=== PATIENT | male | born 1995 ===

== ENCOUNTER 2018-09-20 15:39 | Emergency (ER) | payer MEDICAID, OTHER ==
[2018-09-20 15:57] VITALS: O2SAT 100
--- NOTE | 2018-09-20 16:59 | ED PDOC ---
HPI: General Adult Time Seen by Provider: 09/20/18 16:28 Chief Complaint (Nursing): Upper Extremity Problem/Injury Chief Complaint (Provider): Neck Lumps History Per: Patient History/Exam Limitations: no limitations Onset/Duration Of Symptoms: Days (x1 year) Current Symptoms Are (Timing): Still Present Additional Complaint(s): Patient is a 22 y/o male with no significant PMHx who presents to the ED for evaluation of a lump on the right side his neck for over a year. Patient states he recently noticed one near his armpit. Patient states he saw a dentist for the lump on his neck originally, was given antibiotics without improvement and told he needed to follow up, but he never did. Patient reports occasional discomfort/aware of the lump while swallowing. Patient denies difficulty breathing, drooling, swallowing, chest pain, unintentional weight loss, fever, and chills. PCP: None Provided Past Medical History Reviewed: Historical Data, Nursing Documentation, Vital Signs Vital Signs: Last Vital Signs Temp 98.9 F 09/20/18 15:56 Pulse 75 09/20/18 15:56 Resp 16 09/20/18 15:56 BP 121/70 09/20/18 15:56 Pulse Ox 100 09/20/18 15:56 - Medical History PMH: No Chronic Diseases - Surgical History Surgical History: Tonsillectomy - Family History Family History: States: No Known Family Hx - Allergies Allergies/Adverse Reactions: Allergies Allergy/AdvReac Type Severity Reaction Status Date / Time No Known Allergies Allergy Verified 09/20/18 16:03 Review of Systems ROS Statement: Except As Marked, All Systems Reviewed And Found Negative Constitutional: Negative for: Fever, Chills ENT: Negative for: Other (difficulty swallowing) Respiratory: Negative for: Other (difficulty breathing) Musculoskeletal: Positive for: Neck Pain (discomfort; right side neck and axilla area feels a lump) Physical Exam - Reviewed Nursing Documentation Reviewed: Yes Vital Signs Reviewed: Yes - Physical Exam Comments: GENERAL APPEARANCE: Patient is awake, alert, oriented x 3, in no acute distress. SKIN: Warm, dry; (-) cyanosis, (-) rash. (-) Decubitus Ulcer Right axilla: (-) palpable lympadenopathy, cyst, or abscess EYES: (-) conjunctival pallor, (-) scleral icterus, (-) conjunctival hemorrhage. ENMT: Mucous membranes moist, (-) trismus. TMs: (-) erythema. Airway patent: (-) stridor. Pharynx: (-) erythema, (-) exudate. NECK: Full ROM, (-) tenderness, (-) stiffness, (-) meningismus, (-) thyromegaly. Submandibular lymph nodes bilateral, R>L. ABDOMEN AND GI: Soft; (-) tenderness, (-) guarding; (-) organomegaly; (-) mass; (-) CVA tenderness. EXTREMITIES: (-) deformity; (-) cellulitis, (-) lymphangitis; (-) subungual hemorrhage; (-) edema. NEURO AND PSYCH: Mental status as above; (-) focal findings. - Laboratory Results Result Diagrams: 09/20/18 17:35 09/20/18 17:35 - ECG O2 Sat by Pulse Oximetry: 100 (RA) Pulse Ox Interpretation: Normal Medical Decision Making Medical Decision Making: Time: 1640 Impression: Nonspecific lumps Plan: Neck Soft Tissue [Rad] Rapid Strep Group a Antigen BMP CBC Time: 1740 FINDINGS: Airway appears grossly normal. No radiopaque foreign body seen. No osseous destruction seen. No malalignment. IMPRESSION: No airway compromise appreciated. No radiopaque foreign body noted. Time: 1814 Mildly low WBC. Nonspecific. Advised to followup with PCP. Discussed results, diagnosis, treatment, return precautions and f/u with pt who is understanding, in agreement and stable for dc Scribe Attestation: Documented by Arnold Espinal, acting as a scribe for Wil Perez PA-C Provider Scribe Attestation: All medical record entries made by the Scribe were at my direction and personally dictated by me. I have reviewed the chart and agree that the record accurately reflects my personal performance of the history, physical exam, medical decision making, and the department course for this patient. I have also personally directed, reviewed, and agree with the discharge instructions and disposition. Disposition - Clinical Impression Clinical Impression: Lymphadenopathy, Abnormal white blood cell - Patient ED Disposition Is Patient to be Admitted: No Counseled Patient/Family Regarding: Studies Performed, Diagnosis, Need For Followup - Disposition Referrals: [facility] [Outside] Disposition: Routine/Home Disposition Time: 18:14 Condition: STABLE Additional Instructions: Thank you for letting us take care of you today. You were treated for an enlarged lymph node, with mildly low WBC. The emergency medical care you rece ived today was directed at your acute symptoms. If you were prescribed any medication, please fill it and take as directed. It may take several days for your symptoms to resolve. Return to the Emergency Department if your symptoms worsen, do not improve, or if you have any other problems. Please contact your doctor in 2 days for re-evaluation and follow up / or call one of the physicians/clinics you have been referred to that are listed on the Patient Visit Information form that is included in your discharge packet. Bring any paperwork you were given at discharge with you along with any medications you are taking to your follow up visit. Our treatment cannot replace ongoing medical care by a primary care provider (PCP) outside of the emergency department. Instructions: Lymphadenitis Forms: [employer] (Vincentian) Print Language: DANISH - POA Present On Arrival: None
[2018-09-20 17:39] LABS: BASO % 1.3 % (0.0-2.0); EOS # 0.1 K/uL (0.0-0.7); EOS % 2.6 % (0.0-4.0); LYMPH # 1.4 K/uL (1.0-4.3); LYMPH % 36.9 % (20.0-40.0); MEAN CELL VOLUME 91.6 fl (80.0-94.0); MEAN CORPUSCULAR HEMOGLOBIN 31.2 pg (27.0-31.0); MEAN CORPUSCULAR HGB CONC 34.1 g/dL (33.0-37.0); MONO # 0.3 K/uL (0.0-0.8); MONO % 7.4 % (0.0-10.0); NEUT # 1.9 K/uL (1.8-7.0); NEUT % 51.8 % (50.0-75.0); NRBC % 3.5 % (0.0-0.0); RBC 5.11 Mil/uL (4.40-5.90); RED CELL DISTRIBUTION WIDTH 12.7 % (11.5-14.5); WHITE BLOOD COUNT 3.7 K/uL (4.8-10.8)
--- NOTE | 2018-09-20 17:45 | RAD ---
Date of service: 09/20/2018 HISTORY: COMPARISON: No comparison available. TECHNIQUE: 2 views obtained. FINDINGS: Airway appears grossly normal. No radiopaque foreign body seen. No osseous destruction seen. No malalignment. IMPRESSION: No airway compromise appreciated. No radiopaque foreign body noted.
[2018-09-20 17:48] LABS: BLOOD UREA NITROGEN 13 mg/dl (9-20); CALCIUM 9.7 mg/dL (8.4-10.2); GFR NON-AFRICAN AMERICAN > 60
[2018-09-20 18:22] VITALS: BP 122/70; PULSE 76; RESP 18; TEMP 98
== END 2018-09-20 18:22 | disposition home or self-care (01) ==
LOC: H.ER 15:39
DX: R59.0 Localized enlarged lymph nodes (principal); D72.819 Decreased white blood cell count, unspecified